=== PATIENT | female | born 1945 | race Hispanic/Latino ===

== ENCOUNTER 2017-06-08 08:47 | Outpatient (CLI) | payer MEDICARE | END 2017-06-08 08:48 | disposition home or self-care (01) | LOC: BICMAMMO 08:47 | PROVIDERS: ATTEND Family Medicine | DX: Z13.820 Encounter for screening for osteoporosis (principal); Z78.0 Asymptomatic menopausal state | CPT/HCPCS: 77080 ==

== ENCOUNTER 2018-04-26 10:36 | Day surgery (SDC) | payer MEDICARE ==
[2018-04-25 14:34] VITALS: BMI 28.5
--- NOTE | 2018-04-26 02:07 | HP ---
HISTORY OF PRESENT ILLNESS: This is a 73-year-old [place] female with previous colonoscopy with polypectomy in 2013. At the present time, the patient has no specific GI symptoms. Bowel movements are regular. No abdominal pain or hematochezia. The patient alarms us he has history of colon polyp. ALLERGIES: LISINOPRIL. MEDICAL ILLNESS: 1. Hypertension. 2. Hyperlipidemia. 3. Diffuse anxiety. 4. Hypothyroidism. 5. Arthritis. SOCIAL HISTORY: The patient does not smoke or drink alcohol. PHYSICAL EXAMINATION: VITAL SIGNS: Pulse is 70, blood pressure 130/70. HEENT: Conjunctivae are clear. CARDIOVASCULAR SYSTEM: First and second heart sounds heard. LUNGS: Clear to auscultation. ABDOMEN: Soft to palpation. No organomegaly. No tenderness. No masses. ADMITTING DIAGNOSIS: A 73-year-old Latin-[place] female comes for a colonoscopy for colon cancer screening. Job ID: [id number]
[2018-04-26] MEDS ORDERED: Fentanyl 100 MCG/2 ML VIAL ONE (12:43)
[2018-04-26] MEDS ORDERED: Lidocaine 2% Jelly 5 ML TUBE ONE (12:44)
[2018-04-26] MEDS ORDERED: Lidocaine 1% PF 5 ML VIAL ONE (17:12)
[2018-04-26] MEDS ORDERED: PROPOFOL 200 MG/20 ML VIAL ONE (17:12)
--- NOTE | 2018-04-29 09:44 | OP ---
DATE OF PROCEDURE: 04/26/2018 PREOPERATIVE DIAGNOSIS: A 73-year-old female with history of colon polyp, undergoing followup colonoscopy. POSTOPERATIVE DIAGNOSES: 1. Sessile polyp of transverse colon removed with biopsy forceps. 2. Large hemorrhoids. PROCEDURE PERFORMED: Colonoscopy with biopsy. DESCRIPTION OF PROCEDURE: The patient was placed on her left lateral position and was given sedation by Anesthesia Department. A rectal exam was done before the scope was advanced into the rectum. No lesions felt on rectal exam. A [employer]ax video colonoscope was introduced into the rectum and advanced all the way into the cecum. The prep was good. The mucosa appears normal throughout the colon with normal vascular pattern. The appendiceal orifice, ileocecal wall, cecum, no pathology seen. Withdrawal of scope in the cecum, ascending colon, hepatic flexure, no pathology seen. The mid transverse colon showed a sessile polyp measuring approximately 1 cm. The polyp was removed by biopsy forceps. The remainder of the transverse colon, splenic flexure, descending colon, sigmoid colon, no pathology seen. Retroflexion of scope in the rectum showed hemorrhoids. DISCHARGE PLANNING: This is a 73-year-old female came for the colonoscopy with previous history of colon polyp. The patient underwent . The patient did well postprocedure and being discharged. DISCHARGE INSTRUCTIONS: 1. The patient advised to call me if she develops abdominal pain, hematochezia. 2. In the absence of any of the above symptoms, come back to me in 2 weeks. Job ID: [id number]
== END 2018-04-26 14:25 | disposition home or self-care (01) ==
LOC: SDC 10:36
PROVIDERS: ATTEND Internal Medicine Gastroenterology
PROC: 0DBL8ZX Excision of Transverse Colon, Via Natural or Artificial Opening Endoscopic, Diagnostic (ICD-10-PCS; principal; 2018-04-26)
DX: Z12.11 Encounter for screening for malignant neoplasm of colon (principal); K63.5 Polyp of colon; K64.9 Unspecified hemorrhoids; I10 Essential (primary) hypertension; E78.5 Hyperlipidemia, unspecified; E03.9 Hypothyroidism, unspecified; M19.90 Unspecified osteoarthritis, unspecified site; F41.8 Other specified anxiety disorders; F32.9 Major depressive disorder, single episode, unspecified; Z86.010 Personal history of colon polyps; Z79.899 Other long term (current) drug therapy; Z88.8 Allergy status to other drugs, medicaments and biological substances
CPT/HCPCS: 88305; J2001; J2704; J3010

== ENCOUNTER 2022-12-15 05:59 | Day surgery (SDC) | payer MEDICARE ==
[2022-12-13 15:12] VITALS: BMI 30.2
[2022-12-15] MEDS ORDERED: Glycopyrrolate 0.2 MG/ML 5 ML SYRINGE ONE (07:30)
[2022-12-15] MEDS ORDERED: PROPOFOL 200 MG/20 ML VIAL ONE (07:30)
[2022-12-15] MEDS ORDERED: Lidocaine 1% PF 5 ML VIAL ONE (07:30)
== END 2022-12-15 09:05 | disposition home or self-care (01) ==
LOC: SDC 05:59
PROVIDERS: ATTEND Internal Medicine Gastroenterology
PROC: 0DJD8ZZ Inspection of Lower Intestinal Tract, Via Natural or Artificial Opening Endoscopic (ICD-10-PCS; principal; 2022-12-15)
DX: Z12.11 Encounter for screening for malignant neoplasm of colon (principal); K64.8 Other hemorrhoids; E03.9 Hypothyroidism, unspecified; I10 Essential (primary) hypertension; Z86.010 Personal history of colon polyps; Z88.8 Allergy status to other drugs, medicaments and biological substances
CPT/HCPCS: J2704